=== PATIENT | female | born 1990 | race Caucasian/White ===

== ENCOUNTER → 2022-01-22 | Day surgery (SDC) | payer OTHER ==
[~2022-01-22] VITALS: Ht 152.4 cm; Wt 68.0 kg
[~2022-01-22] MED LIST: ACETAMINOPHEN500 M1 PO; ACITRETIN10 MG PO; CENTRUM ADULTS1 EACH PO; COLACE100 MG PO; MOTRIN600 MG PO; OXY-IR 5MG5 MG PO
[2022-01-22 11:21] LABS: HCG (URINE) SCREEN NEGATIVE (NEGATIVE)
== END | disposition home or self-care (01) ==
LOC: FAS 10:30
PROVIDERS: Anesthesiology
DX: K43.0 Incisional hernia with obstruction, without gangrene (principal); K38.9 Disease of appendix, unspecified; N73.6 Female pelvic peritoneal adhesions (postinfective); Z90.3 Acquired absence of stomach [part of]; Z88.1 Allergy status to other antibiotic agents; Z88.2 Allergy status to sulfonamides; Z86.73 Personal history of transient ischemic attack (TIA), and cerebral infarction without residual deficits; Z98.84 Bariatric surgery status; Z98.51 Tubal ligation status; Z87.891 Personal history of nicotine dependence
CPT/HCPCS: 84703; J1100; J1170; J1644; J2250; J2405; J2704; J3010; J3370; J7050; J7120

== ENCOUNTER 2022-02-11 19:07 | Emergency (ER) | payer OTHER ==
[2022-02-11 20:50] LABS: BASOPHIL 0.8 % (0-2); EOSINOPHIL 2.8 % (0-5); HCT 36.4 % (37.0-47.0); LYMPHOCYTE 24.3 % (15-48); MCH 29.1 pg (25.0-31.0); MCV 88.1 fL (78.0-100.0); MONOCYTE 9.3 % (0-12); MPV 8.8 fL (6.0-9.5); NEUTROPHIL 62.5 % (41-80); NRBC 0; PLT 353 K/uL (150-400); RBC 4.13 M/uL (4.20-5.40); RDW 12.9 % (11.5-14.0); WBC 6.3 K/uL (4.0-10.5)
[2022-02-11 21:00] LABS: BILIRUBIN NEGATIVE (NEGATIVE); BLOOD NEGATIVE Ery/uL (NEGATIVE); CLARITY CLEAR (CLEAR); COLOR YELLOW (YELLOW); GLUCOSE (U) NORMAL (NORMAL); LEUKOCYTES NEGATIVE Leu/uL (NEGATIVE); NITRITE NEGATIVE (NEGATIVE); PROTEIN NEGATIVE (NEGATIVE); SPECIFIC GRAVITY <=1.005 (1.001-1.030); UROBILINOGEN 0.2 mg/dL (0.2-1.0)
[2022-02-11 21:06] LABS: ALBUMIN 3.7 g/dL (3.4-5.0); BILIRUBIN - TOTAL 0.3 mg/dL (0.2-1.0); BUN/CREAT RATIO (CALC) 12.9 RATIO; CREATININE 0.7 mg/dL (0.51-0.95); GLOBULIN (CALCULATION) 4.2 g/dL; TOTAL PROTEIN 7.9 g/dL (6.4-8.2)
[2022-02-11] MEDS ORDERED: PERCOCET 5-3251 EACH PO (22:19)
== END 2022-02-11 22:29 | disposition home or self-care (01) ==
LOC: FER 19:07
PROVIDERS: Internal Medicine
DX: R10.32 Left lower quadrant pain (principal); R74.8 Abnormal levels of other serum enzymes; Z88.1 Allergy status to other antibiotic agents; Z88.2 Allergy status to sulfonamides; Z91.018 Allergy to other foods
CPT/HCPCS: 36415; 80053; 81003; 83690; 85025; J1170; J2405

== ENCOUNTER 2022-03-15 11:20 | Emergency (ER) | payer OTHER ==
[~2022-03-15 11:20] MED LIST changes: +PERCOCET 5-3251 EACH PO
[2022-03-15] MEDS ORDERED: CYCLOBENZAPRINE10 MG PO (13:32)
== END 2022-03-15 13:40 | disposition home or self-care (01) ==
LOC: FER 11:20
DX: S39.012A Strain of muscle, fascia and tendon of lower back, initial encounter (principal); S96.912A Strain of unspecified muscle and tendon at ankle and foot level, left foot, initial encounter; Z88.1 Allergy status to other antibiotic agents; Z88.2 Allergy status to sulfonamides; W50.0XXA Accidental hit or strike by another person, initial encounter; Y92.89 Other specified places as the place of occurrence of the external cause; Y99.0 Civilian activity done for income or pay
CPT/HCPCS: 72100; 73610; J1885

== ENCOUNTER → 2022-06-12 | Day surgery (SDC) | payer OTHER ==
[~2022-06-12] VITALS: Ht 152.4 cm; Wt 68.0 kg
[~2022-06-12] MED LIST changes: +CYCLOBENZAPRINE10 MG PO; +HYDROXYZINE PAM25 MG PO; +IBUPROFEN800 M1 PO; +LATUDA40 MG PO; +ONDANSETRON ODT4 MG PO
[2022-06-12 08:07] LABS: HCG (URINE) SCREEN NEGATIVE (NEGATIVE)
[2022-06-12 08:28] LABS: HGB 12.1 g/dl (12.5-16.0); MCH 29.6 pg (25.0-31.0); MCHC 33.6 g/dL (32.0-36.0); MPV 8.8 fL (6.0-9.5); RBC 4.09 M/uL (4.20-5.40); WBC 9.4 K/uL (4.0-10.5)
--- NOTE | 2022-06-12 13:33 | NUR ---
1310 PATIENT HAD SUDDEN EMESIS. STATES SHE DOES THIS SOMETIMES POST GASTRIC SLEEVE. REPORTS FEELING BETTER POST EMESIS. INTACT PERCOCET WAS FOUND IN EMESIS AND WAS WITNESSED BY Tre WRIGHT RN. DISPOSED OF PERCOCET WITNESSED BY Tre WRIGHT RN. PATIENT REFUSES PAIN MED AT THIS TIME. PAIN IN ABDOMEN AT LEVEL 3
--- NOTE | 2022-06-12 14:33 | NUR ---
UP TO BATHROOM AFTER WALKING IN [place]. UNABLE TO VOID. BACK TO BED
== END | disposition home or self-care (01) ==
LOC: FAS 07:51
PROVIDERS: Obstetrics & Gynecology
DX: N80.0 Endometriosis of uterus (principal); D25.9 Leiomyoma of uterus, unspecified; N83.8 Other noninflammatory disorders of ovary, fallopian tube and broad ligament; N83.201 Unspecified ovarian cyst, right side; L98.9 Disorder of the skin and subcutaneous tissue, unspecified; F31.9 Bipolar disorder, unspecified; Z98.51 Tubal ligation status; Z87.891 Personal history of nicotine dependence
CPT/HCPCS: 36415; 84703; 86850; 86900; 86901; J1885; J1956; J2250; J2405; J2704; J2710; J3010; J7120